=== PATIENT | female | born 1985 | race Caucasian/White ===

== ENCOUNTER 2016-10-29 17:39 | Inpatient (IN) | payer SELFPAY ==
--- NOTE | 2016-10-29 18:46 | PCM.LDHP ---
L&D History of Present Illness - General Date of Service: 10/29/16 Admit Problem/Dx: Patient Status Order with Admit Dx/Problem 10/29/16 18:05 Patient Status [ADT] Routine Admission Diagnosis/Problem Admission Diagnosis/Problem complications 10/29/16 18:29 3 8-6/7 week intrauterine , hypertension, possible early labor Source of Information: Patient History Limitations: Reports: No limitations - History of Present Illness Introduction:: History of present illness: Margareth is a 31-year-old 4 para 2012 white female who is admitted from clinic with elevated blood pressures in a 38-6/7 week intrauterine . Was in for routine visit today and blood pressures were noted to be in the 150s to 160s over low 100s range. She's evaluated with preeclampsia labs which show urinalysis with 1+ protein. Her hemoglobin and hematocrit are 11.4 and 33.9 with white count 7.72 and platelets 165. Her comprehensive metabolic profile and chemistry profiles showed a sodium 135, potassium 4.4. CO2 is 24 and chloride is 102. Uric acid is 5.5. ALT is 99 AST is 51. Working diagnosis is preeclampsia. She is admitted for induction of labor. course has been significant for right renal dilation. This is recognized at her 20 week ultrasound and followed on regular intervals throughout the remainder of the . She was seen by VICKY Fontenot at [facility] in [place], and decision was made to monitor the kidney size/ dilation, the left kidney and amniotic fluid volume and reevaluate after delivery. Serial ultrasounds showed only minimal increase in the dilation but with some hydroureter towards the end of the . Her [place] depression screen score on 06/23/2016 was 1. She is group B strep negative. She has a history of -induced hypertension with past pregnancies. She plans to breast-feed. Her first visit was at 9-5/7 weeks on 04/08/2016. She was seen on are or basis throughout the . She made good fundal height growth. Her vital signs remained stable throughout the . Her weight increased from 165 pounds 2 196 pounds 4 831.4 pound weight gain. Labs during the course of showed blood to be O+. Negative antibody screen. Platelets at first. As were 256,000. Pap smear is negative. Rubella titer showed immunity. RPR is nonreactive. Hepatitis B surface antigen screen was negative. HIV assay was negative. Chlamydia and gonorrhea assays were negative. Second trimester testing showed a hemoglobin of 12.2. Platelets were 175,000. One hour GTT was 76. Platelets are redone on 10/15 and showed level CLXVII,000. Her hemoglobin is 11.8 at that time. Group B strep screen was negative. Allergies: latex Medications: 1. vitamins 1 daily Past medical history: 1. Normal spontaneous vaginal delivery x2 2. Miscarriage 6 weeks 2012. 3. Hypertension first Past surgical history: Unremarkable. Family history: no significant problems noted family. Specifically no family history of hypertension, diabetes in the . There is no anesthesia, bleeding, blood clotting problems noted in the family. Social history: Patient is , is Sylvester Rees. She lives in [place]. She is a college graduate. She is a homemaker. She does not use any significant loss of alcohol, drugs or tobacco. Review of systems: Skin-some acne in the past HEENT-specifically negative for headaches, vision problems, spots from, blurry vision, sinusitis symptoms of preeclampsia Lungs-normal Cardiovascular-negative Breasts-normal changes of GI-appetite is good-no nausea -normal changes associated with term Extremities-no significant swelling noted Neurological-unremarkable Physical exam: In general the patient is a well-developed, well-nourished, pleasant female stated age in no acute distress. She appears to be alert and oriented x3 and stated age. Skin is warm and dry without lesions. Patient does have some acne scarring HEENT, neck and back within normal limits. Cardiovascular exam shows regular rate and rhythm without murmurs. Abdomen is is protuberant with last fundal height at approximately 38 cm. Baby in a vertex presentation-confirmed by ultrasound. Cervix-4 cm-90% effaced/very soft/-3 station and ballotable/midposition/vertex presentation Extremities-minimal edema noted Neurological-deep tendon reflexes +1-2/4 bilaterally in upper and lower extremities. - Related Data Allergies/Adverse Reactions: Allergies Allergy/AdvReac Type Severity Reaction Status Date / Time No Known Allergies Allergy Verified 10/28/13 00:15 Home Medications: Home Meds Ibuprofen [Motrin] 600 mg PO Q4H PRN #20 tablet 10/29/13 [Rx] Vit with Ca/FA/Iron [ Plus Iron] 1 each PO DAILY #60 tablet [Rx] Past Medical History - Past Health History Medical/Surgical History: Denies Medical/Surgical History Social & Family History - Tobacco Use Second Hand Smoke Exposure: No - Recreational Drug Use Recreational Drug Use: No H&P Review of Systems - Review of Systems: Review Of Systems: See Below L&D Exam - Exam Exam: See Below - Vital Signs Vital Signs: Last Vital Signs Temp 37.3 C 10/29/16 18:05 Pulse 63 10/29/16 18:05 Resp 14 10/29/16 18:05 BP 144/91 H 10/29/16 18:05 Pulse Ox Weight: 88.904 kg Problem List Initiated/Reviewed/Updated: Yes Orders Last 24hrs: Active Orders 24 hr Category Date Time Status Patient Status [ADT] Routine ADT 10/29/16 18:05 Active Non Stress Test [RC] PER UNIT ROUTINE Care 10/29/16 18:05 Active Up ad Pam [RC] ASDIRECTED Care 10/29/16 18:06 Active Vital Signs [RC] PER UNIT ROUTINE Care 10/29/16 18:05 Active Regular Diet [DIET] Diet 10/29/16 Dinner Active Resuscitation Status Routine Resus Stat 10/29/16 18:05 Ordered Assessment/Plan Comment:: Assessment: 1. 38-6/7 week intrauterine , clinical findings of blood pressure elevation, mild edema along with a returned findings consistent with probable preeclampsia. Patient's ALT, AST and uric acid are elevated along with urinalysis showing 1+ protein. 2. well-being confirmed with reactive nonstress test and good activity. 3. Previous history of preeclampsia with first 4. renal dilation-right side with extension into a right hydroureter. This is been relatively stable and only minimally progressive over the course of the last 6 weeks. [facility] recommendation to deliver and have the baby evaluated by pediatric urology. 5. Patient is desiring epidural in labor 6. Group B strep screen is negative. 7. Patient plans to nurse. Plan: 1. Pitocin augmentation of contractions to bring the head down into the pelvis- artificial rupture membranes to follow 2. Monitor for blood pressure elevation-treated as indicated 3. monitor 4. Inform pediatrics of the presence of this patient labor and delivery. They have been previously made aware of the impending delivery of this patient with a kidney dilation. 5. Support breast-feeding behavior. 6. Epidural when necessary
[2016-10-29] MEDS ORDERED: Sodium Chloride 0.9% 10 ML Syringe FLUSH PRN (18:50)
[2016-10-29] MEDS ORDERED: Nalbuphine 20 MG/1 ML Amp IVPUSH PRN (18:50)
[2016-10-29] MEDS ORDERED: Lidocaine 1% 50 ML MDV INJECT ONE (18:50)
[2016-10-29] MEDS ORDERED: Oxytocin/Lactated Ringers 10 UNIT/1,000 ML BAG IV SCH (19:00)
[2016-10-29] MEDS: Lactated Ringers 1,000 ML IV SCH ×2 (19:18→21:51)
[2016-10-29] MEDS ORDERED: diphenhydrAMINE 50 MG/ML SDV IVPUSH PRN (21:23)
[2016-10-29] MEDS ORDERED: fentaNYL 100 MCG/2 ML SDV EPIDUR PRN (21:23)
[2016-10-29] MEDS ORDERED: ePHEDrine 50 MG/ML SDV IVPUSH PRN (21:23)
--- NOTE | 2016-10-29 22:13 | PCM.PREANE ---
Preanesthetic Assessment - Anesthesia/Transfusion/Family Hx Anesthesia History: Prior Anesthesia Without Reaction Family History of Anesthesia Reaction: No Transfusion History: No Prior Transfusion(s) - Review of Systems General: No Symptoms Pulmonary: No Symptoms Cardiovascular: No Symptoms Gastrointestinal: No symptoms Neurological: No Symptoms Other: Reports: None - Physical Assessment Pulse: 70 O2 Sat by Pulse Oximetry: 99 Respiratory Rate: 14 Blood Pressure: 135/82 Vital Signs: Last Vital Signs Temp 99.1 F 10/29/16 18:05 Pulse 63 10/29/16 18:05 Resp 14 10/29/16 18:05 BP 144/91 H 10/29/16 18:05 Pulse Ox Height: 5 ft 5 in Weight: 88.904 kg ASA Class: 2 Mental Status: Alert & Oriented x3 Airway Class: Mallampati = 1 Dentition: Reports: Normal Dentition Thyro-Mental Finger Breadths: 3 Mouth Opening Finger Breadths: 3 ROM/Head Extension: Full Lungs: Clear to auscultation, Normal respiratory effort Cardiovascular: Regular Rate, Regular Rhythm, No Murmurs - Allergies Allergies/Adverse Reactions: Allergies Allergy/AdvReac Type Severity Reaction Status Date / Time latex Allergy Itching Verified 10/29/16 20:23 - Blood Blood Available: No - Acknowledgements Anesthesia Type Planned: Epidural Pt an Appropriate Candidate for the Planned Anesthesia: Yes Alternatives and Risks of Anesthesia Discussed w Pt/Guardian: Yes Pt/Guardian Understands and Agrees with Anesthesia Plan: Yes PreAnesthesia Questionnaire - Past Health History Medical/Surgical History: Denies Medical/Surgical History Cardiovascular History: Reports: Other (see below) Other Cardiovascular History: PIH Respiratory History: Reports: None Gastrointestinal History: Reports: GERD (with ) [employer] History: Reports: , Spontaneous : 4 (38 6 weeks) Para: 3 - SUBSTANCE USE Smoking Status *Q: Never Smoker Tobacco Use Within Last Twelve Months: No Second Hand Smoke Exposure: No Days Per Week of Alcohol Use: 0 Recreational Drug Use History: No - HOME MEDS Home Medications: Home Meds Calcium Carbonate [Tums] 10/29/16 [History] - CURRENT (IN HOUSE) MEDS Current Meds: Current Medications Diphenhydramine HCl (Benadryl) 25 mg IVPUSH Q6H PRN PRN Reason: pruritis Ephedrine Sulfate (Ephedrine Sulfate) 5 mg IVPUSH ASDIRECTED PRN PRN Reason: Hypotension Fentanyl (Sublimaze) 100 mcg EPIDUR Q3H PRN PRN Reason: Pain Fentanyl/Bupivacaine HCl (Fentanyl/Bupivacaine/Ns 2 Mcg-0.125% 100 Ml) 100 ml EPIDUR ASDIRECTED WADE Lactated Ringer's (Ringers, Lactated) 1,000 mls @ 100 mls/hr IV ASDIRECTED WADE Last Admin: 10/29/16 21:51 Dose: 100 mls/hr Oxytocin/Lactated Ringer's (Pitocin In Lr 10 Units/1,000 Ml) 10 unit in 1,000 mls @ 12 mls/hr IV TITRATE WADE; 2 MUNITS/MIN PRN Reason: Protocol Last Titration: 10/29/16 20:15 Dose: 4 munits/min, 24 mls/hr Nalbuphine HCl (Nubain) 10 mg IVPUSH Q2H PRN PRN Reason: Pain (moderate 4-6) Sodium Chloride (Saline Flush) 10 ml FLUSH ASDIRECTED PRN PRN Reason: Keep Vein Open Discontinued Medications Lidocaine HCl (Xylocaine 1%) 10 ml INJECT ONETIME ONE Stop: 10/29/16 18:51
[2016-10-29] MEDS: Bupivacaine/fentaNYL/NS 100 ML Bag EPIDUR SCH (22:14)
[2016-10-30] MEDS: Lactated Ringers 1,000 ML IV SCH ×2 (00:03→06:28)
[2016-10-30] MEDS ORDERED: Simethicone 80 MG Tab.Chew PO ONE (03:16)
[2016-10-30] MEDS: Bupivacaine/fentaNYL/NS 100 ML Bag EPIDUR SCH (06:42)
--- NOTE | 2016-10-30 08:08 | PCM.SN ---
- Free Text/Narrative Note: Delivery note: Margareth is a 31-year-old 4 para 3013 white female who was admitted last evening with elevated blood pressures, clinical features and laboratory findings consistent with preeclampsia. She was admitted at 38-6/7 weeks gestational age. Induction of labor with Pitocin and eventually artificial rupture membranes was undertaken. She labored through the night without significant progress. This a.m. was 8 cm, 90% efface, -3 station, very soft and midposition. Artificial rupture membranes was undertaken with an [place] trumpet and a spinal needle. This resulted in clear amniotic fluid. Variable decelerations were noted but variability of heart rate was good. In the course of the next hour patient became completely dilated and at 0743 hours on 10/29/2016 she delivered a viable, single 10, male infant with Apgars of 7 and 9 and a weight of 7# 10 oz in a left occiput anterior position. There was no evidence of nuchal cord or shoulder cord. The baby was placed on mom's abdomen. Cord was clamped and cord blood was obtained. The placenta delivered at 0746 hours in a [place] presentation, appeared intact and complete. It was discarded per patient request. The cord had 3 vessels. Blood loss was minimal at 100 cc or less. Pitocin was administered after delivery of the baby to facilitate uterine contraction slow bleeding. Mother was skin to skin with the baby after delivery.
[2016-10-30] MEDS ORDERED: Benzocaine/Menthol 20%-0.5% Spray 56 GM Canister TOP PRN (08:20)
[2016-10-30] MEDS ORDERED: Witch Hazel Medicated Pads 100/Jar TOP PRN (08:20)
[2016-10-30] MEDS ORDERED: Docusate Sodium 100 MG Cap PO PRN (08:20)
[2016-10-30] MEDS ORDERED: Lanolin 100% Cream 7 GM Tube TOP PRN (08:20)
[2016-10-30] MEDS ORDERED: Acetaminophen 325 MG Tab PO PRN (08:20)
[2016-10-30] MEDS: Prenatal Multivitamin with Calcium/Folic Acid/Iron Tab PO SCH (11:26)
[2016-10-30] MEDS: Ibuprofen 600 MG Tab PO PRN ×2 (11:26→18:54)
[2016-10-30] MEDS ORDERED: Bupivacaine 0.25% 10 ML SDV ONE (12:00)
[2016-10-31] MEDS: Ibuprofen 600 MG Tab PO PRN ×3 (00:23→21:58)
--- NOTE | 2016-10-31 07:08 | PCM.PNPP ---
- General Info Date of Service: 10/31/16 Functional Status: Reports: pain controlled, tolerating diet, ambulating, urinating - Review of Systems General: Reports: No Symptoms Pulmonary: Reports: no symptoms Cardiovascular: Reports: No Symptoms Gastrointestinal: Reports: No symptoms Genitourinary: Reports: no symptoms Musculoskeletal: Reports: no symptoms Neurological: Reports: No Symptoms - Patient Data Vital Signs - most recent: Last Vital Signs Temp 36.6 C 10/31/16 04:22 Pulse 60 10/31/16 04:22 Resp 15 10/31/16 04:22 BP 144/94 H 10/31/16 04:22 Pulse Ox 97 10/31/16 04:22 Weight - most recent: 88.904 kg I&O - last 24 hours: Intake & Output 10/30/16 10/31/16 10/31/16 22:59 06:59 14:59 Intake Total 240 Balance 240 Med Orders - Current: Current Medications Acetaminophen (Tylenol) 650 mg PO Q4H PRN PRN Reason: mild pain or fever Benzocaine/Menthol (Dermoplast Pain Relief [place]) 0 gm TOP ASDIRECTED PRN PRN Reason: Perineal Comfort Measure Docusate Sodium (Colace) 100 mg PO BID PRN PRN Reason: Constipation Emollient Ointment (Lansinoh Hpa) 0 gm TOP ASDIRECTED PRN PRN Reason: Sore Nipples Ibuprofen (Motrin) 600 mg PO Q4H PRN PRN Reason: Mild pain or fever Last Admin: 10/31/16 00:23 Dose: 600 mg Prenat Multivit/Plant [employer] Specialist/Iron/Folic Ac ( Plus Iron) 1 each PO DAILY WADE Last Admin: 10/30/16 11:26 Dose: 1 each Witch Nara (Tucks) 1 pad TOP ASDIRECTED PRN PRN Reason: Hemorrhoid pain Discontinued Medications Diphenhydramine HCl (Benadryl) 25 mg IVPUSH Q6H PRN PRN Reason: pruritis Ephedrine Sulfate (Ephedrine Sulfate) 5 mg IVPUSH ASDIRECTED PRN PRN Reason: Hypotension Fentanyl (Sublimaze) 100 mcg EPIDUR Q3H PRN PRN Reason: Pain Last Admin: 10/29/16 22:15 Dose: 100 mcg Fentanyl/Bupivacaine HCl (Fentanyl/Bupivacaine/Ns 2 Mcg-0.125% 100 Ml) 100 ml EPIDUR ASDIRECTED WADE Last Admin: 10/30/16 06:42 Dose: 100 ml Lactated Ringer's (Ringers, Lactated) 1,000 mls @ 100 mls/hr IV ASDIRECTED WADE Last Admin: 10/30/16 06:28 Dose: 100 mls/hr Oxytocin/Lactated Ringer's (Pitocin In Lr 10 Units/1,000 Ml) 10 unit in 1,000 mls @ 12 mls/hr IV TITRATE WADE; 2 MUNITS/MIN PRN Reason: Protocol Last Titration: 10/30/16 07:13 Dose: 9 munits/min, 54 mls/hr Lidocaine HCl (Xylocaine 1%) 10 ml INJECT ONETIME ONE Stop: 10/29/16 18:51 Last Admin: 10/30/16 18:46 Dose: Not Given Nalbuphine HCl (Nubain) 10 mg IVPUSH Q2H PRN PRN Reason: Pain (moderate 4-6) Simethicone (Simethicone) 80 mg PO ONETIME ONE Stop: 10/30/16 03:17 Last Admin: 10/30/16 03:28 Dose: 80 mg Sodium Chloride (Saline Flush) 10 ml FLUSH ASDIRECTED PRN PRN Reason: Keep Vein Open - Interaction Infant Disposition, : [place] to Nursery Feeding: Breastfed Infant; Nursed Well Support Person: - Recovery Exam Fundal Tone: Firm Fundal Level: 2 Fingerbreadths Below Umbilicus Fundal Placement: Midline Lochia Amount: Scant Lochia Color: Rubra/Red Perineum Description: Intact, Minimal Bruising/Swelling Episiotomy/Laceration: None Bladder Status: Voiding Urinary Elimination: Voided - Exam General: alert, oriented, cooperative Abdomen: soft, no tenderness Extremities: edema - Problem List Review Problem List Initiated/Reviewed/Updated: Yes - Assessment Assessment:: 31 y/o G4 now P3013 PPD#1 from after IOL for preeclampsia - Plan Plan:: * Routine cares * BP's mildly elevated for most part yesterday, but one diastolic value of 100. Patient strongly desires discharge today. Will monitor throughout the day and see how her BP's trend * Encourage breast * feeding * Discharge home today vs tomorrow pending clinical course
[2016-10-31] MEDS: Prenatal Multivitamin with Calcium/Folic Acid/Iron Tab PO SCH (10:08)
--- NOTE | 2016-11-01 07:44 | PCM.PNPP ---
- General Info Date of Service: 11/01/16 Functional Status: Reports: pain controlled, tolerating diet, ambulating, urinating - Review of Systems General: Reports: No Symptoms Pulmonary: Reports: no symptoms Cardiovascular: Reports: No Symptoms Gastrointestinal: Reports: No symptoms Genitourinary: Reports: no symptoms Musculoskeletal: Reports: no symptoms Neurological: Reports: No Symptoms - Patient Data Vital Signs - most recent: Last Vital Signs Temp 36.8 C 11/01/16 04:00 Pulse 59 L 11/01/16 04:11 Resp 16 11/01/16 04:00 BP 138/78 11/01/16 04:11 Pulse Ox 96 11/01/16 04:11 Weight - most recent: 88.904 kg I&O - last 24 hours: Intake & Output 10/31/16 11/01/16 11/01/16 22:59 06:59 14:59 Intake Total 240 Balance 240 Med Orders - Current: Current Medications Acetaminophen (Tylenol) 650 mg PO Q4H PRN PRN Reason: mild pain or fever Benzocaine/Menthol (Dermoplast Pain Relief [place]) 0 gm TOP ASDIRECTED PRN PRN Reason: Perineal Comfort Measure Docusate Sodium (Colace) 100 mg PO BID PRN PRN Reason: Constipation Emollient Ointment (Lansinoh Hpa) 0 gm TOP ASDIRECTED PRN PRN Reason: Sore Nipples Ibuprofen (Motrin) 600 mg PO Q4H PRN PRN Reason: Mild pain or fever Last Admin: 10/31/16 21:58 Dose: 600 mg Prenat Multivit/Care Aide/Iron/Folic Ac ( Plus Iron) 1 each PO DAILY WADE Last Admin: 10/31/16 10:08 Dose: 1 each Witch Nara (Tucks) 1 pad TOP ASDIRECTED PRN PRN Reason: Hemorrhoid pain Discontinued Medications Diphenhydramine HCl (Benadryl) 25 mg IVPUSH Q6H PRN PRN Reason: pruritis Ephedrine Sulfate (Ephedrine Sulfate) 5 mg IVPUSH ASDIRECTED PRN PRN Reason: Hypotension Fentanyl (Sublimaze) 100 mcg EPIDUR Q3H PRN PRN Reason: Pain Last Admin: 10/29/16 22:15 Dose: 100 mcg Fentanyl/Bupivacaine HCl (Fentanyl/Bupivacaine/Ns 2 Mcg-0.125% 100 Ml) 100 ml EPIDUR ASDIRECTED WADE Last Admin: 10/30/16 06:42 Dose: 100 ml Lactated Ringer's (Ringers, Lactated) 1,000 mls @ 100 mls/hr IV ASDIRECTED WADE Last Admin: 10/30/16 06:28 Dose: 100 mls/hr Oxytocin/Lactated Ringer's (Pitocin In Lr 10 Units/1,000 Ml) 10 unit in 1,000 mls @ 12 mls/hr IV TITRATE WADE; 2 MUNITS/MIN PRN Reason: Protocol Last Titration: 10/30/16 07:13 Dose: 9 munits/min, 54 mls/hr Lidocaine HCl (Xylocaine 1%) 10 ml INJECT ONETIME ONE Stop: 10/29/16 18:51 Last Admin: 10/30/16 18:46 Dose: Not Given Nalbuphine HCl (Nubain) 10 mg IVPUSH Q2H PRN PRN Reason: Pain (moderate 4-6) Simethicone (Simethicone) 80 mg PO ONETIME ONE Stop: 10/30/16 03:17 Last Admin: 10/30/16 03:28 Dose: 80 mg Sodium Chloride (Saline Flush) 10 ml FLUSH ASDIRECTED PRN PRN Reason: Keep Vein Open - Interaction Infant Disposition, : [place] at Bedside Feeding: Breastfed Infant; Nursed Well Support Person: - Recovery Exam Fundal Tone: Firm Fundal Level: 1 Fingerbreadths Below Umbilicus Fundal Placement: Midline Lochia Amount: Small Lochia Color: Rubra/Red Perineum Description: Intact, Minimal Bruising/Swelling Episiotomy/Laceration: None Bladder Status: Voiding Urinary Elimination: Voided - Exam General: alert, oriented, cooperative Abdomen: soft Skin: warm, dry, intact - Problem List & Annotations (1) Preeclampsia SNOMED Code(s): 891996450 Code(s): O14.90 - UNSPECIFIED PRE-ECLAMPSIA, UNSPECIFIED TRIMESTER Status: Acute Current Visit: Yes Qualifiers: Qualified Code(s): O14.93 - Unspecified pre-eclampsia, third trimester (2) Vaginal delivery SNOMED Code(s): 322881732 Code(s): O80 - ENCOUNTER FOR FULL-TERM UNCOMPLICATED DELIVERY Status: Acute Current Visit: Yes - Problem List Review Problem List Initiated/Reviewed/Updated: Yes - Assessment Assessment:: 31 y/o G4 now P3013 PPD#2 from after IOL for preeclampsia - Plan Plan:: * Routine cares * BP's normal to mild range. Will follow up for BP check in 1-2 weeks. * Discharge home today
--- NOTE | 2016-11-01 07:45 | PCM.DCSUM1 ---
Discharge Summary - Discharge Data Discharge Date: 11/01/16 Discharge Disposition: Home, Self-Care 01 Condition: Good - Discharge Diagnosis/Problem(s) (1) Preeclampsia SNOMED Code(s): 752684315 ICD Code: O14.90 - UNSPECIFIED PRE-ECLAMPSIA, UNSPECIFIED TRIMESTER Status : Acute Current Visit: Yes Qualifiers: Qualified Code(s): O14.93 - Unspecified pre-eclampsia, third trimester (2) Vaginal delivery SNOMED Code(s): 145358928 ICD Code: O80 - ENCOUNTER FOR FULL-TERM UNCOMPLICATED DELIVERY Status: Acute Current Visit: Yes - Patient Summary/Data Complications: None Consults: None Recommended Follow-up Testing/Procedures: Follow up in 1-2 weeks for BP check Hospital Course: 31 y/o admitted at 38 6/7 wks for findings of preeclampsia. Induction begun and she progressed well to complete dilation and underwent an uncomplicated vaginal delivery. See note. BP's remained normal to mild range. She was discharged to home on PPD#2 with plans for BP check in 1-2 weeks. - Patient Instructions Diet: Regular Diet as Tolerated Activity: As Tolerated Activity, Other: Pelvic Rest for 6 weeks Driving: May Drive Today Showering/Bathing: May Shower Showering/Bathing, Other: May Bathe Notify Provider of: Fever, Increased Pain, Swelling and Redness, Drainage, Nausea and/or Vomiting - Discharge Plan Home Medications: Home Meds Ibuprofen [IJD: Ibuprofen] 600 mg PO Q6H PRN #0 tablet 10/31/16 [Rx] Patient Handouts: and Mastitis, Hypertension, Home Care Instructions for Mom, Breast Engorgement Referrals: Abram Handy MD [Primary Care Provider] - (1-2 weeks for BP check ) - Discharge Summary/Plan Comment DC Time >30 min.: No - Patient Data Vitals - Most Recent: Last Vital Signs Temp 36.8 C 11/01/16 04:00 Pulse 59 L 11/01/16 04:11 Resp 16 11/01/16 04:00 BP 138/78 11/01/16 04:11 Pulse Ox 96 11/01/16 04:11 Weight - Most Recent: 88.904 kg I&O - Last 24 hours: Intake & Output 10/31/16 11/01/16 11/01/16 22:59 06:59 14:59 Intake Total 240 Balance 240 Med Orders - Current: Current Medications Acetaminophen (Tylenol) 650 mg PO Q4H PRN PRN Reason: mild pain or fever Benzocaine/Menthol (Dermoplast Pain Relief [place]) 0 gm TOP ASDIRECTED PRN PRN Reason: Perineal Comfort Measure Docusate Sodium (Colace) 100 mg PO BID PRN PRN Reason: Constipation Emollient Ointment (Lansinoh Hpa) 0 gm TOP ASDIRECTED PRN PRN Reason: Sore Nipples Ibuprofen (Motrin) 600 mg PO Q4H PRN PRN Reason: Mild pain or fever Last Admin: 10/31/16 21:58 Dose: 600 mg Prenat Multivit/[place]/Iron/Folic Ac ( Plus Iron) 1 each PO DAILY [facility] Last Admin: 10/31/16 10:08 Dose: 1 each Witch Nara (Tucks) 1 pad TOP ASDIRECTED PRN PRN Reason: Hemorrhoid pain Discontinued Medications Diphenhydramine HCl (Benadryl) 25 mg IVPUSH Q6H PRN PRN Reason: pruritis Ephedrine Sulfate (Ephedrine Sulfate) 5 mg IVPUSH ASDIRECTED PRN PRN Reason: Hypotension Fentanyl (Sublimaze) 100 mcg EPIDUR Q3H PRN PRN Reason: Pain Last Admin: 10/29/16 22:15 Dose: 100 mcg Fentanyl/Bupivacaine HCl (Fentanyl/Bupivacaine/Ns 2 Mcg-0.125% 100 Ml) 100 ml EPIDUR ASDIRECTED [facility] Last Admin: 10/30/16 06:42 Dose: 100 ml Lactated Ringer's (Ringers, Lactated) 1,000 mls @ 100 mls/hr IV ASDIRECTED [facility] Last Admin: 10/30/16 06:28 Dose: 100 mls/hr Oxytocin/Lactated Ringer's (Pitocin In Lr 10 Units/1,000 Ml) 10 unit in 1,000 mls @ 12 mls/hr IV TITRATE WADE; 2 MUNITS/MIN PRN Reason: Protocol Last Titration: 10/30/16 07:13 Dose: 9 munits/min, 54 mls/hr Lidocaine HCl (Xylocaine 1%) 10 ml INJECT ONETIME ONE Stop: 10/29/16 18:51 Last Admin: 10/30/16 18:46 Dose: Not Given Nalbuphine HCl (Nubain) 10 mg IVPUSH Q2H PRN PRN Reason: Pain (moderate 4-6) Simethicone (Simethicone) 80 mg PO ONETIME ONE Stop: 10/30/16 03:17 Last Admin: 10/30/16 03:28 Dose: 80 mg Sodium Chloride (Saline Flush) 10 ml FLUSH ASDIRECTED PRN PRN Reason: Keep Vein Open *Q Meaningful Use (DIS) - VTE *Q VTE Criteria *Q: - Stroke *Q Stroke Criteria *Q: - AMI *Q AMI Criteria *Q:
[2016-11-01] MEDS: Prenatal Multivitamin with Calcium/Folic Acid/Iron Tab PO SCH (10:08)
[2016-11-01 10:10] VITALS: BP 153/80
== END 2016-11-01 10:05 | disposition home or self-care (01) | DRG 775 ==
LOC: JD.LAB 17:39 → JD.OB 17:40 → JD.LAB 18:52 → JD.OB 19:25 → OBSVTOIN 10-30 07:57
PROVIDERS: ADMIT Obstetrics & Gynecology; ATTEND Obstetrics & Gynecology
PROC: 10E0XZZ Delivery of Products of Conception, External Approach (ICD-10-PCS; principal; 2016-10-30)
PROC: 10907ZC Drainage of Amniotic Fluid, Therapeutic from Products of Conception, Via Natural or Artificial Opening (ICD-10-PCS; 2016-10-30)
PROC: 3E033VJ Introduction of Other Hormone into Peripheral Vein, Percutaneous Approach (ICD-10-PCS; 2016-10-30)
PROC: 00HU33Z Insertion of Infusion Device into Spinal Canal, Percutaneous Approach (ICD-10-PCS; 2016-10-30)
PROC: 3E0R3CZ (ICD-10-PCS; 2016-10-30)
DX: O14.94 Unspecified pre-eclampsia, complicating childbirth (principal); Z3A.39 39 weeks gestation of pregnancy; Z37.0 Single live birth; Z91.040 Latex allergy status
CPT/HCPCS: 01967; 36415; 85027; A9270-GY; J2590; J3010; J7120

== ENCOUNTER 2019-05-11 19:04 | Inpatient (IN) | payer SELFPAY ==
[2019-05-11] MEDS ORDERED: fentaNYL/Bupivacaine/NS 2 MCG-0.125% 250 ML EPIDUR PRN (19:45)
[2019-05-11] MEDS ORDERED: fentaNYL 100 MCG/2 ML SDV EPIDUR PRN (19:45)
[2019-05-11] MEDS ORDERED: ePHEDrine 50 MG/ML SDV IVPUSH PRN (19:45)
[2019-05-11] MEDS ORDERED: Ondansetron 4 MG/2 ML SDV IVPUSH PRN (19:45)
[2019-05-11] MEDS ORDERED: Phenylephrine 1 MG in Sodium Chloride 0.9% 10 ML IV SCH (19:45)
--- NOTE | 2019-05-11 19:48 | PCM.PREANE ---
Preanesthetic Assessment - Anesthesia/Transfusion/Family Hx Anesthesia History: Prior Anesthesia Without Reaction (only epidurals) Family History of Anesthesia Reaction: No Transfusion History: No Prior Transfusion(s) Intubation History: Unknown - Review of Systems General: No Symptoms Pulmonary: No Symptoms Cardiovascular: No Symptoms Gastrointestinal: No Symptoms (GERD) Neurological: No Symptoms (History of motion sickness) Other: Reports: None - Physical Assessment NPO Status Date: 05/11/19 NPO Status Time: 17:30 Vital Signs: HR: 68 BP: 137/77 Sat: 99% Resp: 14 Temp: 98.7F Height: 1.65 m Weight: 84 kg ASA Class: 2 Mental Status: Alert & Oriented x3 Airway Class: Mallampati = 1 Dentition: Reports: Normal Dentition, Caries Thyro-Mental Finger Breadths: 3 Mouth Opening Finger Breadths: 3 ROM/Head Extension: Full Lungs: Clear to Auscultation, Normal Respiratory Effort Cardiovascular: Regular Rate, Regular Rhythm, No Murmurs - Lab Values: All labs reviewed and noted and within acceptable ranges to proceed with epidural. - Allergies Allergies/Adverse Reactions: Allergies Allergy/AdvReac Type Severity Reaction Status Date / Time latex Allergy Itching Verified 10/29/16 20:23 - Anesthesia Plan Pre-Op Medication Ordered: None - Acknowledgements Anesthesia Type Planned: Epidural Pt an Appropriate Candidate for the Planned Anesthesia: Yes Alternatives and Risks of Anesthesia Discussed w Pt/Guardian: Yes Pt/Guardian Understands and Agrees with Anesthesia Plan: Yes PreAnesthesia Questionnaire - Past Health History Medical/Surgical History: Denies Medical/Surgical History Cardiovascular History: Reports: Other (See Below) Other Cardiovascular History: PIH Respiratory History: Reports: None Gastrointestinal History: Reports: GERD (with ) 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
[2019-05-11] MEDS ORDERED: Nalbuphine 10 MG/1 ML Vial IVPUSH PRN (20:12)
[2019-05-11] MEDS ORDERED: Sodium Chloride 0.9% 10 ML Syringe FLUSH PRN (20:12)
[2019-05-11] MEDS ORDERED: Oxytocin/Lactated Ringers 10 UNIT/1,000 ML BAG IV SCH (20:15)
--- NOTE | 2019-05-11 21:32 | PCM.LDHP ---
<Ashley Carreno R - Last Filed: 05/12/19 04:50> L&D History of Present Illness - General Date of Service: 05/11/19 Admit Problem/Dx: Patient Status Order with Admit Dx/Problem 05/11/19 20:14 Patient Status [ADT] Routine Admission Diagnosis/Problem Admission Diagnosis/Problem 05/11/19 21:00 Margareth is a 33-year-old 5 para 3013 presently at 39-3/7 weeks gestational age with an TERRANCE of 05/15/2019 who presents to labor and delivery in active labor with advanced cervical dilation of 6 cm. Source of Information: Patient History Limitations: Reports: No Limitations - History of Present Illness Introduction:: Margareth is a 33-year-old 5 para 3013 presently at 39-3/7 weeks gestational age with an TERRANCE of 05/15/2019 who presents to labor and delivery in active labor with advanced cervical dilation of 6 cm. She believes that her membranes ruptured at 0430 on 05/11/2019. She did not have regular contractions until this evening when she decided to come into the hospital. 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 Onset of menarche is unknown. Regular, monthly cycles every 28-30 days. Her last menstrual period was 2018 which sets the TERRANCE at 05/15/2019. Ultrasound on 12/29/2018 confirms this due date. Previous pregnancies include: 1. of a male at 39 weeks gestational age on 08/07/2011. Labor was 17 hours. Weight was 5 lbs. 14 oz. His name is Ashish. Epidural was given during this delivery. She had high blood pressure throughout this . 2. demise at 6 weeks gestational age on 10/29/2012. Products of conception passed naturally with no medical intervention. 3. of a female at 40 weeks gestational age on 10/28/2013. Labor was 14 hours. Weight was 7 lbs. 2 oz. Her name is Delmi. Epidural was given during this delivery. 4. of a male infant at 39 weeks gestational age on 10/30/2016. Labor was 11 hours. Weight was 7 lbs. 10 oz. His name is Rafita. Epidural was given during this delivery. Risk factors included high blood pressure. course: First visit was at 36-1/7 weeks gestational age on . She recently moved back to the area and wanted to deliver with Dr. Handy. Records were obtained from previous facility and important information transferred to her [facility] chart. Group B strep negative on 04/18/2019. Influenza immunization given on 04/25/2019. Tdap updated on 02/23/2019. Laboratory testing: Blood type O+ with negative antibody screen. Initial labs include a hemoglobin of 12.3 g/dL and platelets of 172,000. Group B strep negative on 04/18/2019. She is rubella immune. RPR nonreactive. Hepatitis B surface antigen and HIV testing was negative on 10/27/2018. Chlamydia and gonorrhea screen also negative. Glucose tolerance test was performed on 02/16/2019 and showed a 1 hour glucose of 86. Allergies: 1. Latex 2. NKDA Medications: 1. /Iron oral tablet once daily Past medical history: 1. Kidney infection at age 6 2. History of PIH 3. History of spontaneous vaginal delivery x 3 Past surgical history: none Social history: Patient is . She is a [id number] mom. is Sylvester. They live in [place]. No significant use of alcohol, drugs, or tobacco products. 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: , Spontaneous Social & Family History - Caffeine Use Caffeine Use: Reports: Coffee Other Caffeine Use: Half caf cup of coffee every day H&P Review of Systems - Review of Systems: Review Of Systems: See Below General: Reports: No Symptoms HEENT: Reports: No Symptoms Pulmonary: Reports: No Symptoms Cardiovascular: Reports: No Symptoms Gastrointestinal: Reports: No Symptoms Genitourinary: Reports: No Symptoms Musculoskeletal: Reports: No Symptoms Skin: Reports: No Symptoms Psychiatric: Reports: No Symptoms Neurological: Reports: No Symptoms Hematologic/Lymphatic: Reports: No Symptoms Immunologic: Reports: No Symptoms L&D Exam - Exam Exam: See Below - Vital Signs Weight: 84.368 kg - Exam Quality Assessment: No: Urinary Catheter, DVT Prophylaxis, Skin Breakdown General: Alert, Oriented HEENT: EOMI, Hearing Intact, Mucosa Moist & [place] Neck: Supple, Trachea Midline Lungs: Clear to Auscultation, Normal Respiratory Effort. No: Crackles, Wheezing Cardiovascular: Regular Rate, Regular Rhythm, Normal S1, Normal S2 GI/Abdominal Exam: Other (Gravid) Extremities: Normal Inspection, No Pedal Edema, Normal Capillary Refill Skin: Warm, Dry, Intact Neurological: No: Focal Deficit Psychiatric: Alert, Normal Affect, Normal Mood - Patient Data Lab Results Last 24 hrs: Laboratory Results - last 24 hr 05/11/19 Range/Units 20:20 WBC 8.96 (3.98-10.04) K/mm3 RBC 3.93 L (3.98-5.22) M/mm3 Hgb 12.5 D (11.2-15.7) gm/dl Hct 36.7 (34.1-44.9) % MCV 93.4 (79.4-94.8) fl MCH 31.8 (25.6-32.2) pg MCHC 34.1 (32.2-35.5) g/dl RDW Std Deviation 41.8 (36.4-46.3) fL Plt Count 196 (182-369) K/mm3 MPV 11.5 (9.4-12.3) fl Neut % (Auto) 71.5 H (34.0-71.1) % Lymph % (Auto) 18.2 L (19.3-51.7) % [place] % (Auto) 8.7 (4.7-12.5) % Eos % (Auto) 1.1 (0.7-5.8) Baso % (Auto) 0.1 (0.1-1.2) % Neut # (Auto) 6.40 H (1.56-6.13) K/mm3 Lymph # (Auto) 1.63 (1.18-3.74) K/mm3 [place] # (Auto) 0.78 H (0.24-0.36) K/mm3 Eos # (Auto) 0.10 (0.04-0.36) K/mm3 Baso # (Auto) 0.01 (0.01-0.08) K/mm3 Result Diagrams: 05/11/19 20:20 Problem List Initiated/Reviewed/Updated: Yes Orders Last 24hrs: Active Orders 24 hr Category Date Time Status Patient Status [ADT] Routine ADT 05/11/19 20:14 Active Activity as Tolerated [RC] PFP Care 05/11/19 20:12 Active Communication Order [RC] ASDIRECTED Care 05/11/19 20:12 Active Heart Tones [RC] ASDIRECTED Care 05/11/19 20:14 Active Non Stress Test [RC] PER UNIT ROUTINE Care 05/11/19 20:12 Active Notify Provider [RC] ASDIRECTED Care 05/11/19 19:45 Active Notify Provider [RC] PFP Care 05/11/19 20:12 Active Notify Provider [RC] PRN Care 05/11/19 20:12 Active Oxygen Therapy [RC] ASDIRECTED Care 05/11/19 19:45 Active Peripheral IV Care [RC] . DIRECTED Care 05/11/19 20:14 Active Pulse Oximetry [RC] ASDIRECTED Care 05/11/19 19:45 Active Vital Signs [RC] PER UNIT ROUTINE Care 05/11/19 20:12 Active Regular Diet [DIET] Diet 05/11/19 Breakfast Active RAPID PLASMA REAGIN,RPR [CHEM] Routine Lab 05/11/19 20:20 Received Bupivicaine/fentaNYL/NS [fentaNYL/Bupivacaine/NS 2 MCG- Med 05/11/19 19:45 Active 0.125% 250 ML] 0 ml EPIDUR CONTINUOUS PRN Lactated Ringers [Ringers, Lactated] 1,000 ml Med 05/11/19 20:15 Active IV ASDIRECTED Nalbuphine [Nubain] Med 05/11/19 20:12 Active 10 mg IVPUSH Q2H PRN Ondansetron [Zofran] Med 05/11/19 19:45 Active 4 mg IVPUSH ONETIME PRN Oxytocin/Lactated Ringers [Pitocin in LR 10 Units/1,000 Med 05/11/19 20:15 Active ML] 10 unit in 1,000 ml IV .CONTINUOUS Phenylephrine [Rob-Synephrine] 1 mg Med 11/06/19 19:45 Active Sodium Chloride 0.9% [Normal Saline] 10 ml IV TITRATE Sodium Chloride 0.9% [Saline Flush] Med 05/11/19 20:12 Active 10 ml FLUSH ASDIRECTED PRN ePHEDrine [ePHEDrine sulfate] Med 05/11/19 19:45 Active 5 mg IVPUSH ASDIRECTED PRN fentaNYL [Sublimaze] Med 05/11/19 19:45 Active 100 mcg EPIDUR Q3H PRN Electronic Heart Tones Ext w TOCO [WOMSER] Oth 05/11/19 20:12 Ordered Routine Electronic Heart Tones Internal [WOMSER] Per Unit Oth 05/11/19 20:12 Ordered Routine Peripheral IV Insertion Adult [OM.PC] Routine Oth 05/11/19 20:12 Ordered Resuscitation Status Routine Resus Stat 05/11/19 20:12 Ordered Medication Orders Ephedrine Sulfate (Ephedrine Sulfate) 5 mg IVPUSH ASDIRECTED PRN PRN Reason: Hypotension Fentanyl (Sublimaze) 100 mcg EPIDUR Q3H PRN PRN Reason: Pain Fentanyl/Bupivacaine HCl (Fentanyl/Bupivacaine/Ns 2 Mcg-0.125% 250 Ml) 0 ml EPIDUR CONTINUOUS PRN PRN Reason: Pain Phenylephrine HCl 1 mg/ Sodium (Chloride) 10.1 mls @ 1 mls/sec IV TITRATE WADE; Protocol Lactated Ringer's (Ringers, Lactated) 1,000 mls @ 100 mls/hr IV ASDIRECTED WADE Oxytocin/Lactated Ringer's (Pitocin In Lr 10 Units/1,000 Ml) 10 unit in 1,000 mls @ 500 mls/hr IV .CONTINUOUS WADE Nalbuphine HCl (Nubain) 10 mg IVPUSH Q2H PRN PRN Reason: Pain Ondansetron HCl (Zofran) 4 mg IVPUSH ONETIME PRN PRN Reason: Nausea/Vomiting Sodium Chloride (Saline Flush) 10 ml FLUSH ASDIRECTED PRN PRN Reason: Keep Vein Open Assessment/Plan Comment:: Assessment: 1. 39-3/7 week intrauterine , active labor 2. Group B strep negative status 3. Patient desires epidural for labor analgesia. 4. Up-to-date on immunizations including influenza, Tdap, and MMR 5. Patients plans to breastfeed. Plan: 1. Anticipate normal spontaneous vaginal delivery 2. Patient will be given an epidural. 3. Support patient's decision to nurse. <Abram Handy F - Last Filed: 05/12/19 04:55> L&D History of Present Illness - General Admit Problem/Dx: Patient Status Order with Admit Dx/Problem 05/11/19 20:14 Patient Status [ADT] Routine Admission Diagnosis/Problem Admission Diagnosis/Problem L&D Exam - Vital Signs Vital Signs: Last Vital Signs Temp 37.1 C 05/11/19 20:12 Pulse 66 05/11/19 20:12 Resp 15 05/11/19 20:12 BP 137/77 05/11/19 20:12 Pulse Ox 99 05/11/19 20:12 - Patient Data Lab Results Last 24 hrs: Laboratory Results - last 24 hr 05/11/19 05/11/19 Range/Units 20:20 20:20 WBC 8.96 (3.98-10.04) K/mm3 RBC 3.93 L (3.98-5.22) M/mm3 Hgb 12.5 D (11.2-15.7) gm/dl Hct 36.7 (34.1-44.9) % MCV 93.4 (79.4-94.8) fl MCH 31.8 (25.6-32.2) pg MCHC 34.1 (32.2-35.5) g/dl RDW Std Deviation 41.8 (36.4-46.3) fL Plt Count 196 (182-369) K/mm3 MPV 11.5 (9.4-12.3) fl Neut % (Auto) 71.5 H (34.0-71.1) % Lymph % (Auto) 18.2 L (19.3-51.7) % [place] % (Auto) 8.7 (4.7-12.5) % Eos % (Auto) 1.1 (0.7-5.8) Baso % (Auto) 0.1 (0.1-1.2) % Neut # (Auto) 6.40 H (1.56-6.13) K/mm3 Lymph # (Auto) 1.63 (1.18-3.74) K/mm3 [place] # (Auto) 0.78 H (0.24-0.36) K/mm3 Eos # (Auto) 0.10 (0.04-0.36) K/mm3 Baso # (Auto) 0.01 (0.01-0.08) K/mm3 RPR Non-reactive (NONREACTIVE) Result Diagrams: 05/11/19 20:20 Orders Last 24hrs: Active Orders 24 hr Category Date Time Status Patient Status Manage Transfer [TRANSFER] Routine ADT 05/12/19 04:40 Active Patient Status [ADT] Routine ADT 05/11/19 20:14 Active Activity as Tolerated [RC] PFP Care 05/11/19 20:12 Active Communication Order [RC] ASDIRECTED Care 05/11/19 20:12 Active Heart Tones [RC] ASDIRECTED Care 05/11/19 20:14 Active Non Stress Test [RC] PER UNIT ROUTINE Care 05/11/19 20:12 Active Notify Provider [RC] ASDIRECTED Care 05/11/19 19:45 Active Notify Provider [RC] PFP Care 05/11/19 20:12 Active Notify Provider [RC] PRN Care 05/11/19 20:12 Active Oxygen Therapy [RC] ASDIRECTED Care 05/11/19 19:45 Active Peripheral IV Care [RC] . DIRECTED Care 05/11/19 20:14 Active Pulse Oximetry [RC] ASDIRECTED Care 05/11/19 19:45 Active Vital Signs [RC] PER UNIT ROUTINE Care 05/11/19 20:12 Active Regular Diet [DIET] Diet 05/11/19 Breakfast Active Bupivicaine/fentaNYL/NS [fentaNYL/Bupivacaine/NS 2 MCG- Med 05/11/19 19:45 Active 0.125% 250 ML] 0 ml EPIDUR CONTINUOUS PRN Lactated Ringers [Ringers, Lactated] 1,000 ml Med 05/11/19 20:15 Active IV ASDIRECTED Nalbuphine [Nubain] Med 05/11/19 20:12 Active 10 mg IVPUSH Q2H PRN Ondansetron [Zofran] Med 05/11/19 19:45 Active 4 mg IVPUSH ONETIME PRN Oxytocin/Lactated Ringers [Pitocin in LR 10 Units/1,000 Med 05/11/19 20:15 Active ML] 10 unit in 1,000 ml IV .CONTINUOUS Phenylephrine [Rob-Synephrine] 1 mg Med 05/11/19 19:45 Active Sodium Chloride 0.9% [Normal Saline] 10 ml IV TITRATE Sodium Chloride 0.9% [Saline Flush] Med 05/11/19 20:12 Active 10 ml FLUSH ASDIRECTED PRN ePHEDrine [ePHEDrine sulfate] Med 05/11/19 19:45 Active 5 mg IVPUSH ASDIRECTED PRN fentaNYL [Sublimaze] Med 05/11/19 19:45 Active 100 mcg EPIDUR Q3H PRN Electronic Heart Tones Ext w TOCO [WOMSER] Oth 05/11/19 20:12 Ordered Routine Electronic Heart Tones Internal [WOMSER] Per Unit Oth 05/11/19 20:12 Ordered Routine Peripheral IV Insertion Adult [OM.PC] Routine Oth 05/11/19 20:12 Ordered Resuscitation Status Routine Resus Stat 05/11/19 20:12 Ordered Medication Orders Ephedrine Sulfate (Ephedrine Sulfate) 5 mg IVPUSH ASDIRECTED PRN PRN Reason: Hypotension Fentanyl (Sublimaze) 100 mcg EPIDUR Q3H PRN PRN Reason: Pain Last Admin: 05/11/19 23:22 Dose: 100 mcg Fentanyl/Bupivacaine HCl (Fentanyl/Bupivacaine/Ns 2 Mcg-0.125% 250 Ml) 0 ml EPIDUR CONTINUOUS PRN PRN Reason: Pain Phenylephrine HCl 1 mg/ Sodium (Chloride) 10.1 mls @ 1 mls/sec IV TITRATE WADE; Protocol Lactated Ringer's (Ringers, Lactated) 1,000 mls @ 100 mls/hr IV ASDIRECTED WADE Last Admin: 05/12/19 02:47 Dose: 100 mls/hr Infusion: 05/12/19 02:47 Dose: 100 mls/hr Admin: 05/11/19 23:59 Dose: 100 mls/hr Infusion: 05/11/19 23:59 Dose: 999 mls/hr Admin: 05/11/19 23:29 Dose: 999 mls/hr Infusion: 05/11/19 23:29 Dose: 999 mls/hr Admin: 05/11/19 22:34 Dose: 999 mls/hr Oxytocin/Lactated Ringer's (Pitocin In Lr 10 Units/1,000 Ml) 10 unit in 1,000 mls @ 500 mls/hr IV .CONTINUOUS WADE Nalbuphine HCl (Nubain) 10 mg IVPUSH Q2H PRN PRN Reason: Pain Ondansetron HCl (Zofran) 4 mg IVPUSH ONETIME PRN PRN Reason: Nausea/Vomiting Sodium Chloride (Saline Flush) 10 ml FLUSH ASDIRECTED PRN PRN Reason: Keep Vein Open Assessment/Plan Comment:: I reviewed these students history and physical and agree with the content.
[2019-05-11] MEDS: Lactated Ringers 1,000 ML IV SCH ×3 (22:34→23:59)
[2019-05-12] MEDS ORDERED: Bupivacaine 0.25% 10 ML SDV ONE
[2019-05-12] MEDS: Lactated Ringers 1,000 ML IV SCH (02:47)
--- NOTE | 2019-05-12 04:47 | PCM.SN ---
- Free Text/Narrative Note: Margareth is a 33-year-old 5 para 3013 presently at 39-3/7 weeks gestational age with an TERRANCE of 05/15/2019 who presents to labor and delivery in active labor with advanced cervical dilation of 6 cm and questionable slow leak of amniotic fluid. This was confirmed with exam in L&D. She progressed slowly to complete cervical dilation. She had spontaneous rupture membranes with clear amniotic fluid. She underwent epidural for labor analgesia with good results. She became complete at approximately 0400 hrs. on 05/12/2019. She pushed for approximately 3 contractions and delivered a viable, gaytan, male infant at 0422 hrs. on 05/12/2019. Apgars were 8 and 9. Weight was 3120 g (6 pounds 14.1 ounces). Length was 19.5 inches. They delivered in a direct occiput anterior position, was placed on mom's abdomen. Nose and mouth were bulb suctioned. Pitocin was started and run at 500 mL per hour to facilitate and increase uterine tone and decrease likelihood of bleeding. The cord umbilical cord was allowed to pulsate times approximately 2 minutes then was clamped and cut by the baby's father Sylvester. Vocal cord had 3 vessels. Cord blood was obtained The placenta delivered in a Coffey presentation, appeared intact and complete and was discarded per patient desire. The patient plans to breast-feed. Estimated blood loss 100 mL. Condition: Good
[2019-05-12] MEDS ORDERED: Benzocaine/Menthol 20%-0.5% Spray 56 GM Canister TOP PRN (05:19)
[2019-05-12] MEDS ORDERED: Docusate Sodium 100 MG Cap PO PRN (05:19)
[2019-05-12] MEDS ORDERED: Acetaminophen 325 MG Tab PO PRN (05:19)
[2019-05-12] MEDS ORDERED: Witch Hazel Medicated Pads 40/Jar TOP PRN (05:19)
[2019-05-12] MEDS: Ibuprofen 600 MG Tab PO PRN ×3 (06:00→19:51)
[2019-05-12] MEDS: Prenatal Multivitamin with Calcium/Folic Acid/Iron Tab PO SCH (10:18)
[2019-05-13 05:14] VITALS: PULSE 57
--- NOTE | 2019-05-13 06:10 | PCM.DCSUM1 ---
Discharge Summary - Hospital Course Free Text/Narrative:: Margareth is a 33-year-old 5 para 3013 presently at 39-3/7 weeks gestational age with an TERRANCE of 05/15/2019 who presents to labor and delivery in active labor with advanced cervical dilation of 6 cm and questionable slow leak of amniotic fluid. This was confirmed with exam in L&D. She progressed slowly to complete cervical dilation. She had spontaneous rupture membranes with clear amniotic fluid. She underwent epidural for labor analgesia with good results. She became complete at approximately 0400 hrs. on 05/12/2019. She pushed for approximately 3 contractions and delivered a viable, gaytan, male infant at 0422 hrs. on 05/12/2019. Apgars were 8 and 9. Weight was 3120 g (6 pounds 14.1 ounces). Length was 19.5 inches. They delivered in a direct occiput anterior position, was placed on mom's abdomen. Nose and mouth were bulb suctioned. Pitocin was started and run at 500 mL per hour to facilitate and increase uterine tone and decrease likelihood of bleeding. The cord umbilical cord was allowed to pulsate times approximately 2 minutes then was clamped and cut by the baby's father Sylvester. Vocal cord had 3 vessels. Cord blood was obtained The placenta delivered in a Coffey presentation, appeared intact and complete and was discarded per patient desire. The patient plans to breast-feed. Estimated blood loss 100 mL. patient is doing well. She is breast-feeding without problems. She has minimal lochia, was ambulating well and voiding without concerns. She is desiring discharge home today. Condition: Good Diagnosis: Stroke: No - Discharge Data Discharge Date: 05/13/19 Discharge Disposition: Home, Self-Care 01 Condition: Good - Referral to Home Health Primary Care Physician: Abram Handy MD - Patient Instructions Diet: Regular Diet as Tolerated (Nursing diet with increase calories and calcium as recommended) Activity: As Tolerated (No intercourse or tampons until bleeding resolves) Driving: May Drive Today Showering/Bathing: May Shower (May take a bath) Notify Provider of: Fever, Increased Pain, Swelling and Redness, Nausea and/or Vomiting - Discharge Plan Home Medications: Home Meds Ibuprofen [IJD: Ibuprofen] 600 mg PO Q6H PRN #0 tablet 10/31/16 [Rx] Acetaminophen [Tylenol] 650 mg PO Q4H PRN tablet 05/13/19 [Rx] Ibuprofen [Motrin] 600 mg PO Q4H PRN tablet 05/13/19 [Rx] Vit with Ca/FA/Iron [ Plus Iron] 1 each PO DAILY tablet [Rx] Referrals: Abram Handy MD [Primary Care Provider] - (Return to clinicDr. [facility] weeks.) - Discharge Summary/Plan Comment DC Time >30 min.: No Discharge Summary/Plan Comment: Discharge instructions: 1. Discharge home 2. Diet, activity and follow-up discussed with patient. Recommend nursing diet with increased calories and calcium. 3. Precautions given concern increased pain, bleeding, temperature, signs/ symptoms of DVT/PE. 4. Medications per home medication was printed, discussed with and given to the patient. 5. Return to clinic-Dr. Handy[facility] in 2 weeks. Diagnosis: Term -delivered Condition: Good - Patient Data Vitals - Most Recent: Last Vital Signs Temp 36.8 C 05/13/19 02:43 Pulse 57 L 05/13/19 02:43 Resp 16 05/13/19 02:43 BP 122/79 05/13/19 02:43 Pulse Ox 99 05/13/19 02:43 Weight - Most Recent: 84.368 kg I&O - Last 24 hours: Intake & Output 05/12/19 05/12/19 05/13/19 14:59 22:59 06:59 Intake Total 0 Balance 0 Med Orders - Current: Current Medications Acetaminophen (Tylenol) 650 mg PO Q4H PRN PRN Reason: mild pain or fever Benzocaine/Menthol (Dermoplast Pain Relief [place]) 0 gm TOP ASDIRECTED PRN PRN Reason: Perineal Comfort Measure Docusate Sodium (Colace) 100 mg PO BID PRN PRN Reason: Constipation Ibuprofen (Motrin) 600 mg PO Q4H PRN PRN Reason: Mild pain or fever Last Admin: 05/12/19 19:51 Dose: 600 mg Prenat Multivit/Stover/Iron/Folic Ac ( Plus Iron) 1 each PO DAILY WADE Last Admin: 05/12/19 10:18 Dose: 1 each Witch [place] (Tucks) 1 pad TOP ASDIRECTED PRN PRN Reason: Pain Discontinued Medications Ephedrine Sulfate (Ephedrine Sulfate) 5 mg IVPUSH ASDIRECTED PRN PRN Reason: Hypotension Fentanyl (Sublimaze) 100 mcg EPIDUR Q3H PRN PRN Reason: Pain Last Admin: 05/11/19 23:22 Dose: 100 mcg Fentanyl/Bupivacaine HCl (Fentanyl/Bupivacaine/Ns 2 Mcg-0.125% 250 Ml) 0 ml EPIDUR CONTINUOUS PRN PRN Reason: Pain Phenylephrine HCl 1 mg/ Sodium (Chloride) 10.1 mls @ 1 mls/sec IV TITRATE WADE; Protocol Lactated Ringer's (Ringers, Lactated) 1,000 mls @ 100 mls/hr IV ASDIRECTED WADE Last Admin: 05/12/19 02:47 Dose: 100 mls/hr Oxytocin/Lactated Ringer's (Pitocin In Lr 10 Units/1,000 Ml) 10 unit in 1,000 mls @ 500 mls/hr IV .CONTINUOUS WADE Last Admin: 05/12/19 04:24 Dose: 500 mls/hr Nalbuphine HCl (Nubain) 10 mg IVPUSH Q2H PRN PRN Reason: Pain Ondansetron HCl (Zofran) 4 mg IVPUSH ONETIME PRN PRN Reason: Nausea/Vomiting Sodium Chloride (Saline Flush) 10 ml FLUSH ASDIRECTED PRN PRN Reason: Keep Vein Open
--- NOTE | 2019-05-13 08:41 | PCM48HPAN ---
Post Anesthesia Note - EVALUATION WITHIN 48HRS OF ANESTHETIC Vital Signs in Normal Range: Yes Patient Participated in Evaluation: Yes Respiratory Function Stable: Yes Airway Patent: Yes Cardiovascular Function Stable: Yes Hydration Status Stable: Yes Pain Control Satisfactory: Yes Nausea and Vomiting Control Satisfactory: Yes Mental Status Recovered: Yes Vital Signs: Last Vital Signs Temp 36.8 C 05/13/19 02:43 Pulse 57 L 05/13/19 02:43 Resp 16 05/13/19 02:43 BP 122/79 05/13/19 02:43 Pulse Ox 99 05/13/19 02:43 - COMMENTS/OBSERVATIONS Free Text/Narrative:: no anesthesia complications noted
[2019-05-13] MEDS: Ibuprofen 600 MG Tab PO PRN (11:43)
[2019-05-13 14:07] VITALS: BP 116/66
[2019-05-13] MEDS: Prenatal Multivitamin with Calcium/Folic Acid/Iron Tab PO SCH (14:10)
== END 2019-05-13 12:00 | disposition home or self-care (01) | DRG 807 ==
LOC: JD.OBCHECK 19:04 → JD.OB 19:12 → JD.OBCHECK 05-12 04:22
PROVIDERS: ADMIT Obstetrics & Gynecology; ATTEND Obstetrics & Gynecology
PROC: 10E0XZZ Delivery of Products of Conception, External Approach (ICD-10-PCS; principal; 2019-05-12)
PROC: 3E0R3BZ Introduction of Anesthetic Agent into Spinal Canal, Percutaneous Approach (ICD-10-PCS; 2019-05-12)
DX: O80 Encounter for full-term uncomplicated delivery (principal); Z37.0 Single live birth; Z3A.39 39 weeks gestation of pregnancy
CPT/HCPCS: 01967; 36415; 51702; 59025; 59409; 85025; 86592; A9270-GY; J2590; J3010; J3490; J7120